=== PATIENT | female | born 1950 | race Caucasian/White ===

== ENCOUNTER 2018-02-05 12:37 | Emergency (ER) | payer BC ==
[~2018-02-05] VITALS: Ht 162.6 cm; Wt 84.8 kg
[~2018-02-05 12:37] MED LIST: ALLEGRA180 MG PO; ALLEGRA60 MG PO; CELEXA20 MG PO; CRESTOR10 MG; Coumadin PO; EFFEXOR75 MG PO; JANTOVEN5 MG PO; JANTOVEN7.5 MG PO; LIPITOR80 MG PO; LOFIBRA134 MG PO; PRAVASTATIN SOD40 MG PO; SUDAFED 12-HOU120 MG PO; TRAMADOL HCL50 MG PO; ZOFRAN4 MG PO
[2018-02-05 14:08] LABS: HEMATOCRIT 40.2 % (36.0-46.0); HEMOGLOBIN 12.9 G/DL (11.9-15.5); MCH 24.3 PG (29.0-34.0); MCHC 32.1 G/DL (30.0-36.0); MCV 75.8 FL (83-99); RBC DIS.WIDTH-CV 16.2 % (11.8-14.6); WHITE BLOOD COUNT 16.3 K/uL (4.1-10.2)
[2018-02-05 14:19] LABS: ALBUMIN 4.4 g/dL (3.2-4.8); CHLORIDE 104 mEq/L (99-109); POTASSIUM 4.1 mEq/L (3.7-5.4); SODIUM 141 mEq/L (136-147)
[2018-02-05 14:20] LABS: INTER. NORMALIZED RATIO 3.1
[2018-02-05 14:21] LABS: GLUCOSE 127 mg/dL (70-99); TOTAL PROTEIN 7.7 g/dL (6.4-8.3)
[2018-02-05 14:23] LABS: TOTAL BILIRUBIN 0.6 mg/dL (0.0-1.0)
[2018-02-05 14:25] LABS: ALKALINE PHOSPHATASE 111 IU/L (3-129); CREATININE 0.7 mg/dL (0.6-1.3); GFR ESTIMATE (CALCULATED) > 59 mL/min/
[2018-02-05 14:26] LABS: UREA NITROGEN (BUN) 19 mg/dL (9-23)
[2018-02-05 14:27] LABS: AST (GOT) 24 IU/L (2-34); DIRECT BILIRUBIN 0.2 mg/dL (0.0-0.3)
[2018-02-05 14:28] LABS: ALT (GPT) 21 IU/L (3-49)
[2018-02-05 14:36] LABS: TROP-I INTERPRETATION NEGATIVE; TROPONIN-I < 0.01 ng/mL (0.0-0.30)
[2018-02-05 14:58] LABS: HEMATOLOGY COMMENT 1 SN; PLAT.SUFFICIENCY ADEQUATE; PLATELET COUNT 289 K/uL (156-360)
[2018-02-05 16:02] LABS: APPEARANCE SL.HAZY ((CLEAR)); BILIRUBIN NEGATIVE; BLOOD MODERATE; COLOR YELLOW ((YELLOW)); GLUCOSE (STRIP) NEGATIVE; KETONES NEGATIVE; LEUKOCYTES TRACE; NITRITE POSITIVE; PROTEIN (STRIP) 30; SPECIFIC GRAVITY 1.018 (1.000-1.030); UROBILINOGEN 0.2 MG/DL (0.2-1.0)
[2018-02-05 16:09] LABS: BACTERIA 1+ /HPF; EPITHELIAL CELLS RARE /HPF; HYALINE CASTS 0-5 /LPF; MUCUS 2+ /LPF; UCUL ADDED? YES; WHITE BLOOD CELLS 20-30 /HPF (0-5)
[2018-02-05] MEDS ORDERED: LEVAQUIN750 MG PO (17:46)
[2018-02-05 19:14] VITALS: BP 131/75
== END 2018-02-05 19:23 | disposition home or self-care (01) ==
LOC: EME 12:37
PROVIDERS: Emergency Medicine; Emergency Medicine Emergency Medical Services
DX: N39.0 Urinary tract infection, site not specified (principal); R11.2 Nausea with vomiting, unspecified; R42 Dizziness and giddiness; K21.9 Gastro-esophageal reflux disease without esophagitis; E78.5 Hyperlipidemia, unspecified; F32.9 Major depressive disorder, single episode, unspecified; Z86.718 Personal history of other venous thrombosis and embolism; Z90.710 Acquired absence of both cervix and uterus; Z88.2 Allergy status to sulfonamides; Z88.1 Allergy status to other antibiotic agents; Z88.6 Allergy status to analgesic agent; Z88.8 Allergy status to other drugs, medicaments and biological substances
CPT/HCPCS: 71046; 74177; 80048; 80076; 81003; 84484; 85027; 85610; 87077; 87086; 87186; 93005; 99281; 99284; J0696; J7040

== ENCOUNTER 2018-02-08 09:00 | Emergency (ER) | payer BC ==
[~2018-02-08] VITALS: Ht 162.6 cm; Wt 82.7 kg
[~2018-02-08 09:00] MED LIST changes: +LEVAQUIN750 MG PO
[2018-02-08 09:46] LABS: HEMATOCRIT 36.2 % (36.0-46.0); HEMOGLOBIN 11.9 G/DL (11.9-15.5); MCH 24.7 PG (29.0-34.0); MCHC 32.9 G/DL (30.0-36.0); MCV 75.3 FL (83-99); RBC DIS.WIDTH-CV 16.5 % (11.8-14.6); RBC DIS.WIDTH-SD 44.9 % (39-53); RED BLOOD COUNT 4.81 M/uL (3.80-5.20); WHITE BLOOD COUNT 17.7 K/uL (4.1-10.2)
[2018-02-08 09:57] LABS: ALBUMIN 3.7 g/dL (3.2-4.8); CHLORIDE 100 mEq/L (99-109); POTASSIUM 3.9 mEq/L (3.7-5.4); SODIUM 140 mEq/L (136-147)
[2018-02-08 09:59] LABS: GLUCOSE 130 mg/dL (70-99)
[2018-02-08 10:00] LABS: TOTAL PROTEIN 6.9 g/dL (6.4-8.3)
[2018-02-08 10:02] LABS: TOTAL BILIRUBIN 1.1 mg/dL (0.0-1.0)
[2018-02-08 10:03] LABS: ALKALINE PHOSPHATASE 99 IU/L (3-129); CREATININE 0.6 mg/dL (0.6-1.3); GFR ESTIMATE (CALCULATED) > 59 mL/min/
[2018-02-08 10:04] LABS: UREA NITROGEN (BUN) 21 mg/dL (9-23)
[2018-02-08 10:05] LABS: AST (GOT) 29 IU/L (2-34)
[2018-02-08 10:06] LABS: ALT (GPT) 20 IU/L (3-49)
[2018-02-08 10:19] LABS: LIPASE 10 U/L (1.0-51.0)
[2018-02-08 10:20] LABS: PLAT.SUFFICIENCY ADEQUATE; PLATELET COUNT 232 K/uL (156-360)
[2018-02-08 10:25] LABS: INTER. NORMALIZED RATIO 2.4
[2018-02-08 10:32] LABS: APPEARANCE SL.HAZY ((CLEAR)); BILIRUBIN NEGATIVE; BLOOD SMALL; COLOR AMBER ((YELLOW)); GLUCOSE (STRIP) NEGATIVE; KETONES NEGATIVE; LEUKOCYTES TRACE; NITRITE NEGATIVE; PROTEIN (STRIP) 100; SPECIFIC GRAVITY 1.025 (1.000-1.030)
[2018-02-08 10:37] LABS: BACTERIA RARE /HPF; EPITHELIAL CELLS RARE /HPF; MUCUS TRACE /LPF; UCUL ADDED? YES
[2018-02-08] MEDS ORDERED: KEFLEX500 MG PO (11:49)
[2018-02-08] MEDS ORDERED: TYLENOL WITH C1 EACH PO (11:49)
[2018-02-08 12:09] VITALS: BP 95/45
== END 2018-02-08 12:18 | disposition home or self-care (01) ==
LOC: EME 09:00
PROVIDERS: Emergency Medicine
DX: N39.0 Urinary tract infection, site not specified (principal); R11.2 Nausea with vomiting, unspecified; R55 Syncope and collapse; Z87.442 Personal history of urinary calculi; Z90.710 Acquired absence of both cervix and uterus; Z88.2 Allergy status to sulfonamides; E78.5 Hyperlipidemia, unspecified; Z86.718 Personal history of other venous thrombosis and embolism; Z79.01 Long term (current) use of anticoagulants
CPT/HCPCS: 80053; 81003; 83690; 85027; 85610; 87086; 99281; 99284; J0696; J2405; J7030

== ENCOUNTER → 2018-03-20 | Outpatient (CLI) | payer BC ==
[~2018-03-20] MED LIST changes: +KEFLEX500 MG PO; +TYLENOL WITH C1 EACH PO
== END | disposition home or self-care (01) ==
LOC: NUC 08:08
DX: K31.84 Gastroparesis (principal); R14.0 Abdominal distension (gaseous)
CPT/HCPCS: 78264; A9541

== ENCOUNTER 2018-05-07 16:37 | Inpatient (IN) | payer BC ==
[~2018-05-07] VITALS: Ht 162.6 cm; Wt 83.4 kg
[~2018-05-07 16:37] MED LIST changes: +ATORVASTATIN CA40 MG PO; +EFFEXOR XR75 MG PO; -EFFEXOR75 MG PO; -PRAVASTATIN SOD40 MG PO; +SINUS 12 HOUR120 MG PO; -SUDAFED 12-HOU120 MG PO
[2018-05-07 17:41] LABS: HEMATOCRIT 36.1 % (36.0-46.0); HEMOGLOBIN 11.5 G/DL (11.9-15.5); MCH 23.9 PG (29.0-34.0); MCHC 31.9 G/DL (30.0-36.0); MCV 74.9 FL (83-99); PLATELET COUNT 105 K/uL (156-360); RBC DIS.WIDTH-CV 16.7 % (11.8-14.6); RBC DIS.WIDTH-SD 44.9 % (39-53); RED BLOOD COUNT 4.82 M/uL (3.80-5.20); WHITE BLOOD COUNT 7.5 K/uL (4.1-10.2)
[2018-05-07 17:44] LABS: ALBUMIN 3.5 g/dL (3.2-4.8); CHLORIDE 103 mEq/L (99-109); POTASSIUM 3.2 mEq/L (3.7-5.4); SODIUM 139 mEq/L (136-147)
[2018-05-07 17:45] LABS: MAGNESIUM 1.7 mg/dL (1.3-2.7)
[2018-05-07 17:47] LABS: GLUCOSE 99 mg/dL (70-99); TOTAL PROTEIN 6.4 g/dL (6.4-8.3)
[2018-05-07 17:49] LABS: TOTAL BILIRUBIN 1.3 mg/dL (0.0-1.0)
[2018-05-07 17:50] LABS: ALKALINE PHOSPHATASE 328 IU/L (3-129); PTT 42.7 SEC (25-37)
[2018-05-07 17:51] LABS: CREATININE 0.8 mg/dL (0.6-1.3); GFR ESTIMATE (CALCULATED) > 59 mL/min/
[2018-05-07 17:52] LABS: AST (GOT) 299 IU/L (2-34); UREA NITROGEN (BUN) 20 mg/dL (9-23)
[2018-05-07 17:53] LABS: ALT (GPT) 178 IU/L (3-49); TROP-I INTERPRETATION NEGATIVE; TROPONIN-I < 0.01 ng/mL (0.0-0.30)
[2018-05-07 18:01] LABS: APPEARANCE CLOUDY ((CLEAR)); BILIRUBIN NEGATIVE; BLOOD LARGE; COLOR AMBER ((YELLOW)); GLUCOSE (STRIP) NEGATIVE; KETONES NEGATIVE; LEUKOCYTES SMALL; NITRITE NEGATIVE; PROTEIN (STRIP) 100; SPECIFIC GRAVITY 1.019 (1.000-1.030)
[2018-05-07 18:04] LABS: INTER. NORMALIZED RATIO 4.6
[2018-05-07 18:06] LABS: BACTERIA RARE /HPF; EPITHELIAL CELLS 1+ /HPF; MUCUS TRACE /LPF; RED BLOOD CELLS TNTC /HPF (0-5); UCUL ADDED? YES
[2018-05-07 18:25] LABS: ABS NEUTROPHIL COUNT 6.9; ANISOCYTOSIS 1+; ATYPICAL LYMPHOCYTE 0.9 %; BAND NEUTROPHILS 40.9 % (0-8.0); BASOPH.STIPPLING 1+; BASOPHILS 1.7 %; BURR CELLS 1+; EOSINOPHIL ABS CT 0; HYPOCHROMASIA 1+; LYMPHOCYTES 3.5 % (15.0-45.0); MICROCYTOSIS 1+; MONOCYTES 1.7 % (0-9.0); OVALOCYTES 2+; PLAT.SUFFICIENCY DECREASED; POIKILOCYTOSIS 2+; SEG.NEUTROPHILS 51.3 % (46.0-76.0)
[2018-05-07] MEDS ORDERED: OMEPRAZOLE40 M1 PO (20:17)
[2018-05-07] MEDS ORDERED: AMITIZA24 MICROGR PO (20:17)
[2018-05-07] MEDS ORDERED: PENNSAID112 GM TP (20:18)
[2018-05-07] MEDS ORDERED: MONTELUKAST SOD10 MG PO (20:19)
[2018-05-07 23:43] VITALS: BP 91/53
[2018-05-08] VITALS (7 sets, daily range): BP systolic 96–195; BP diastolic 53–91
[2018-05-08 05:29] LABS: INTER. NORMALIZED RATIO 4.4
[2018-05-08 05:32] LABS: PTT 44.5 SEC (25-37)
[2018-05-08 05:47] LABS: HEMATOCRIT 30.6 % (36.0-46.0); HEMOGLOBIN 9.8 G/DL (11.9-15.5); MCH 23.9 PG (29.0-34.0); MCV 74.6 FL (83-99); PLATELET COUNT 94 K/uL (156-360); RBC DIS.WIDTH-CV 16.8 % (11.8-14.6); RBC DIS.WIDTH-SD 45.4 % (39-53); WHITE BLOOD COUNT 15.5 K/uL (4.1-10.2)
[2018-05-08 05:51] LABS: ALKALINE PHOSPHATASE 130 IU/L (3-129); ALT (GPT) 105 IU/L (3-49); AST (GOT) 116 IU/L (2-34); CHLORIDE 108 MEQ/L (99-109); CREATININE 0.6 MG/DL (0.6-1.3); GFR ESTIMATE (CALCULATED) > 59 mL/min/; GLUCOSE 90 mg/dL (70-99); POTASSIUM 3.6 MEQ/L (3.7-5.4); SODIUM 143 MEQ/L (136-147); TOTAL BILIRUBIN 0.7 MG/DL (0.0-1.0); UREA NITROGEN (BUN) 17 mg/dL (9-23)
[2018-05-08 06:04] LABS: ABS NEUTROPHIL COUNT 14.1; ANISOCYTOSIS 1+; BAND NEUTROPHILS 21.9 % (0-8.0); EOSINOPHIL ABS CT 0; LYMPHOCYTES 6.2 % (15.0-45.0); MICROCYTOSIS 1+; MONOCYTES 2.6 % (0-9.0); OVALOCYTES 1+; PLAT.SUFFICIENCY DECREASED; POIKILOCYTOSIS 2+; SEG.NEUTROPHILS 69.3 % (46.0-76.0)
[2018-05-08 12:41] LABS: BASOPHIL (%) 0.7 % (0-1); BASOPHIL COUNT 0.1 K/uL (0-0.1); EOSINOPHIL (%) 0.7 % (0-5); EOSINOPHIL COUNT 0.1 K/uL (0-0.3); IMMATURE GRANULOCYTE (%) 0.9 % (0.0-0.7); INTER. NORMALIZED RATIO 3.6; LYMPHOCYTE (%) 10.6 % (15-42); LYMPHOCYTE COUNT 1.6 K/uL (1.0-2.8); MCH 23.4 PG (29.0-34.0); MCHC 31.3 G/DL (30.0-36.0); MCV 74.9 FL (83-99); MONOCYTE COUNT 1.3 K/uL (0-0.8); NEUTROPHIL (%) 78.1 % (45-76); NEUTROPHIL COUNT 11.6 K/uL (1.8-6.4); PLATELET COUNT 121 K/uL (156-360); RBC DIS.WIDTH-SD 46.1 % (39-53); RED BLOOD COUNT 4.27 M/uL (3.80-5.20); WHITE BLOOD COUNT 14.8 K/uL (4.1-10.2)
[2018-05-09 03:25] VITALS: BP 112/53
[2018-05-09 07:05] VITALS: BP 134/73
[2018-05-09 07:12] LABS: INTER. NORMALIZED RATIO 1.5
[2018-05-09 07:24] LABS: HEMATOCRIT 31.8 % (36.0-46.0); HEMOGLOBIN 9.9 G/DL (11.9-15.5); MCH 23.4 PG (29.0-34.0); MCHC 31.1 G/DL (30.0-36.0); MCV 75.2 FL (83-99); PLATELET COUNT 118 K/uL (156-360); RBC DIS.WIDTH-CV 17.1 % (11.8-14.6); RBC DIS.WIDTH-SD 46.3 % (39-53); RED BLOOD COUNT 4.23 M/uL (3.80-5.20); WHITE BLOOD COUNT 11.6 K/uL (4.1-10.2)
[2018-05-09 07:32] LABS: ALBUMIN 2.9 G/DL (3.2-4.8); ALKALINE PHOSPHATASE 107 IU/L (3-129); ALT (GPT) 68 IU/L (3-49); CHLORIDE 110 MEQ/L (99-109); CREATININE 0.5 MG/DL (0.6-1.3); GFR ESTIMATE (CALCULATED) > 59 mL/min/; GLUCOSE 73 mg/dL (70-99); IRON 18 MCG/DL (35-150); POTASSIUM 3.4 MEQ/L (3.7-5.4); SODIUM 146 MEQ/L (136-147); UREA NITROGEN (BUN) 15 mg/dL (9-23)
[2018-05-09 07:34] LABS: AST (GOT) 49 IU/L (2-34); TOTAL BILIRUBIN 0.5 MG/DL (0.0-1.0)
[2018-05-09 14:13] VITALS: BP 127/69
[2018-05-09 19:34] VITALS: BP 124/69
[2018-05-10 03:17] VITALS: BP 117/58
[2018-05-10 06:51] LABS: HEMATOCRIT 27.8 % (36.0-46.0); HEMOGLOBIN 8.8 G/DL (11.9-15.5); MCH 23.6 PG (29.0-34.0); MCHC 31.7 G/DL (30.0-36.0); MCV 74.5 FL (83-99); PLATELET COUNT 122 K/uL (156-360); RBC DIS.WIDTH-CV 16.9 % (11.8-14.6); RBC DIS.WIDTH-SD 45.9 % (39-53); RED BLOOD COUNT 3.73 M/uL (3.80-5.20); WHITE BLOOD COUNT 10.8 K/uL (4.1-10.2)
[2018-05-10 07:01] LABS: ALBUMIN 2.6 G/DL (3.2-4.8); ALKALINE PHOSPHATASE 86 IU/L (3-129); ALT (GPT) 52 IU/L (3-49); AST (GOT) 33 IU/L (2-34); C-REACTIVE PROTEIN 106.1 MG/L (0-10); CHLORIDE 107 MEQ/L (99-109); CREATININE 0.4 MG/DL (0.6-1.3); DIRECT BILIRUBIN 0.1 mg/dL (0.0-0.3); GFR ESTIMATE (CALCULATED) > 59 mL/min/; POTASSIUM 3.6 MEQ/L (3.7-5.4); SODIUM 144 MEQ/L (136-147); TOTAL BILIRUBIN 0.4 MG/DL (0.0-1.0); TOTAL PROTEIN 4.6 G/DL (6.4-8.3); UREA NITROGEN (BUN) 10 mg/dL (9-23)
[2018-05-10 07:03] LABS: GLUCOSE 134 mg/dL (70-99)
[2018-05-10 08:45] VITALS: BP 114/59
[2018-05-10 12:52] VITALS: BP 102/57
[2018-05-10 13:49] LABS: INTER. NORMALIZED RATIO 1.6
[2018-05-10 15:15] VITALS: BP 106/56
[2018-05-10 21:00] VITALS: BP 124/61
[2018-05-11 00:50] VITALS: BP 99/52
[2018-05-11 03:54] VITALS: BP 118/65
[2018-05-11 06:57] LABS: INTER. NORMALIZED RATIO 1.6
[2018-05-11 08:41] LABS: ALBUMIN 2.7 G/DL (3.2-4.8); ALKALINE PHOSPHATASE 83 IU/L (3-129); ALT (GPT) 39 IU/L (3-49); AST (GOT) 22 IU/L (2-34); CHLORIDE 107 MEQ/L (99-109); CREATININE 0.4 MG/DL (0.6-1.3); GFR ESTIMATE (CALCULATED) > 59 mL/min/; POTASSIUM 3.4 MEQ/L (3.7-5.4); SODIUM 145 MEQ/L (136-147); TOTAL PROTEIN 4.8 G/DL (6.4-8.3); UREA NITROGEN (BUN) 6 mg/dL (9-23)
[2018-05-11 08:45] VITALS: BP 114/61
[2018-05-11 08:47] LABS: GLUCOSE 90 mg/dL (70-99); TOTAL BILIRUBIN 0.5 MG/DL (0.0-1.0)
[2018-05-11 15:57] VITALS: BP 123/60
[2018-05-11 19:34] VITALS: BP 112/53
[2018-05-12 00:47] VITALS: BP 132/67
[2018-05-12 06:05] LABS: INTER. NORMALIZED RATIO 1.7
[2018-05-12 06:18] LABS: CHLORIDE 104 MEQ/L (99-109); CREATININE 0.5 MG/DL (0.6-1.3); GFR ESTIMATE (CALCULATED) > 59 mL/min/; GLUCOSE 93 mg/dL (70-99); SODIUM 144 MEQ/L (136-147); UREA NITROGEN (BUN) 4 mg/dL (9-23)
[2018-05-12 06:23] LABS: HEMATOCRIT 29.9 % (36.0-46.0); HEMOGLOBIN 9.4 G/DL (11.9-15.5); MCH 23.2 PG (29.0-34.0); MCHC 31.4 G/DL (30.0-36.0); MCV 73.8 FL (83-99); RBC DIS.WIDTH-CV 16.6 % (11.8-14.6); RBC DIS.WIDTH-SD 44.1 % (39-53); RED BLOOD COUNT 4.05 M/uL (3.80-5.20); WHITE BLOOD COUNT 8.1 K/uL (4.1-10.2)
[2018-05-12 06:27] LABS: PLATELET COUNT 201 K/uL (156-360)
[2018-05-12 08:00] VITALS: BP 116/73
[2018-05-12 15:37] VITALS: BP 123/68
[2018-05-12 23:35] VITALS: BP 142/78
[2018-05-13 06:35] LABS: INTER. NORMALIZED RATIO 1.8
[2018-05-13 06:36] LABS: ALBUMIN 3.6 G/DL (3.2-4.8); ALKALINE PHOSPHATASE 85 IU/L (3-129); ALT (GPT) 31 IU/L (3-49); AST (GOT) 18 IU/L (2-34); CHLORIDE 103 MEQ/L (99-109); CREATININE 0.5 MG/DL (0.6-1.3); GFR ESTIMATE (CALCULATED) > 59 mL/min/; GLUCOSE 110 mg/dL (70-99); POTASSIUM 3.9 MEQ/L (3.7-5.4); SODIUM 142 MEQ/L (136-147); TOTAL BILIRUBIN 0.6 MG/DL (0.0-1.0); UREA NITROGEN (BUN) 10 mg/dL (9-23)
[2018-05-13 07:34] LABS: BASOPHIL (%) 0.9 % (0-1); BASOPHIL COUNT 0.1 K/uL (0-0.1); EOSINOPHIL (%) 2.8 % (0-5); EOSINOPHIL COUNT 0.3 K/uL (0-0.3); HEMATOCRIT 33.3 % (36.0-46.0); HEMOGLOBIN 10.7 G/DL (11.9-15.5); LYMPHOCYTE (%) 22.7 % (15-42); LYMPHOCYTE COUNT 2.7 K/uL (1.0-2.8); MCH 23.5 PG (29.0-34.0); MCHC 32.1 G/DL (30.0-36.0); MONOCYTE (%) 6.8 % (3-12); MONOCYTE COUNT 0.8 K/uL (0-0.8); NEUTROPHIL (%) 65.8 % (45-76); NEUTROPHIL COUNT 7.7 K/uL (1.8-6.4); PLATELET COUNT 288 K/uL (156-360); RBC DIS.WIDTH-CV 16.7 % (11.8-14.6); RBC DIS.WIDTH-SD 43.7 % (39-53); RED BLOOD COUNT 4.56 M/uL (3.80-5.20); WHITE BLOOD COUNT 11.7 K/uL (4.1-10.2)
[2018-05-13 11:27] VITALS: BP 113/56
[2018-05-13 16:49] VITALS: BP 134/60
[2018-05-13 20:01] VITALS: BP 109/55
[2018-05-13 23:55] VITALS: BP 119/57
[2018-05-14 07:44] LABS: CHLORIDE 105 MEQ/L (99-109); CREATININE 0.5 MG/DL (0.6-1.3); GFR ESTIMATE (CALCULATED) > 59 mL/min/; GLUCOSE 105 mg/dL (70-99); POTASSIUM 4.2 MEQ/L (3.7-5.4); SODIUM 140 MEQ/L (136-147); UREA NITROGEN (BUN) 13 mg/dL (9-23)
[2018-05-14 07:48] VITALS: BP 113/62
[2018-05-14 08:02] LABS: BASOPHIL COUNT 0.1 K/uL (0-0.1); EOSINOPHIL (%) 3.7 % (0-5); EOSINOPHIL COUNT 0.4 K/uL (0-0.3); HEMATOCRIT 29.6 % (36.0-46.0); HEMOGLOBIN 9.5 G/DL (11.9-15.5); LYMPHOCYTE (%) 25.2 % (15-42); LYMPHOCYTE COUNT 2.7 K/uL (1.0-2.8); MCH 23.8 PG (29.0-34.0); MCHC 32.1 G/DL (30.0-36.0); MCV 74.2 FL (83-99); MONOCYTE (%) 8.7 % (3-12); MONOCYTE COUNT 0.9 K/uL (0-0.8); NEUTROPHIL (%) 60.4 % (45-76); NEUTROPHIL COUNT 6.5 K/uL (1.8-6.4); PLATELET COUNT 288 K/uL (156-360); RBC DIS.WIDTH-CV 17.1 % (11.8-14.6); RBC DIS.WIDTH-SD 45.1 % (39-53); RED BLOOD COUNT 3.99 M/uL (3.80-5.20); WHITE BLOOD COUNT 10.8 K/uL (4.1-10.2)
[2018-05-14 15:33] VITALS: BP 143/60
[2018-05-15 08:21] LABS: INTER. NORMALIZED RATIO 2.4
[2018-05-15 08:25] VITALS: BP 113/67
[2018-05-15 08:27] LABS: HEMATOCRIT 30.6 % (36.0-46.0); HEMOGLOBIN 9.8 G/DL (11.9-15.5); MCH 23.8 PG (29.0-34.0); MCV 74.3 FL (83-99); PLATELET COUNT 326 K/uL (156-360); RBC DIS.WIDTH-CV 17.1 % (11.8-14.6); RBC DIS.WIDTH-SD 45.5 % (39-53); RED BLOOD COUNT 4.12 M/uL (3.80-5.20); WHITE BLOOD COUNT 9.6 K/uL (4.1-10.2)
[2018-05-15 08:41] LABS: CHLORIDE 105 MEQ/L (99-109); CREATININE 0.5 MG/DL (0.6-1.3); GFR ESTIMATE (CALCULATED) > 59 mL/min/; GLUCOSE 97 mg/dL (70-99); POTASSIUM 3.9 MEQ/L (3.7-5.4); SODIUM 142 MEQ/L (136-147); UREA NITROGEN (BUN) 13 mg/dL (9-23)
[2018-05-15] MEDS ORDERED: KEFLEX500 MG PO (15:37)
[2018-05-15 15:41] VITALS: BP 114/57
== END 2018-05-15 18:06 | disposition home or self-care (01) | DRG 854 ==
LOC: EME 16:37 → EDOF 22:54 → 2EAST 22:54 → ENRESERV 22:57 → 2EAST 23:40
PROVIDERS: Emergency Medicine; Family Medicine; Hospitalist; Internal Medicine; Internal Medicine Gastroenterology; Student in an Organized Health Care Education/Training Program
PROC: 0FT44ZZ Resection of Gallbladder, Percutaneous Endoscopic Approach (ICD-10-PCS; principal; 2018-05-09)
DX: A41.51 Sepsis due to Escherichia coli [E. coli] (principal); K80.63 Calculus of gallbladder and bile duct with acute cholecystitis with obstruction; N39.0 Urinary tract infection, site not specified; F33.9 Major depressive disorder, recurrent, unspecified; L03.116 Cellulitis of left lower limb; B02.21 Postherpetic geniculate ganglionitis; F05 Delirium due to known physiological condition; D68.318 Other hemorrhagic disorder due to intrinsic circulating anticoagulants, antibodies, or inhibitors; D68.52 Prothrombin gene mutation; D50.9 Iron deficiency anemia, unspecified; E87.6 Hypokalemia; T45.515A Adverse effect of anticoagulants, initial encounter; D69.59 Other secondary thrombocytopenia; E78.5 Hyperlipidemia, unspecified; E83.51 Hypocalcemia; I10 Essential (primary) hypertension; I25.10 Atherosclerotic heart disease of native coronary artery without angina pectoris; J45.909 Unspecified asthma, uncomplicated; K21.9 Gastro-esophageal reflux disease without esophagitis; E11.649 Type 2 diabetes mellitus with hypoglycemia without coma; F41.9 Anxiety disorder, unspecified; I95.9 Hypotension, unspecified; E11.43 Type 2 diabetes mellitus with diabetic autonomic (poly)neuropathy; K31.84 Gastroparesis; G51.0 Bell's palsy; E66.9 Obesity, unspecified; K44.9 Diaphragmatic hernia without obstruction or gangrene; I80.03 Phlebitis and thrombophlebitis of superficial vessels of lower extremities, bilateral; I83.893 Varicose veins of bilateral lower extremities with other complications; K76.89 Other specified diseases of liver; B96.20 Unspecified Escherichia coli [E. coli] as the cause of diseases classified elsewhere; Z79.01 Long term (current) use of anticoagulants; Z80.51 Family history of malignant neoplasm of kidney; Z82.49 Family history of ischemic heart disease and other diseases of the circulatory system; Z83.0 Family history of human immunodeficiency virus [HIV] disease; Z86.718 Personal history of other venous thrombosis and embolism; Z88.1 Allergy status to other antibiotic agents; Z88.6 Allergy status to analgesic agent; Z88.2 Allergy status to sulfonamides; Z68.31 Body mass index [BMI] 31.0-31.9, adult; Z86.010 Personal history of colon polyps; B94.8 Sequelae of other specified infectious and parasitic diseases
CPT/HCPCS: 71045; 74181; 76705; 80048; 80053; 80076; 81003; 82948; 83540; 83605; 83735; 83880; 84484; 85025; 85025 91; 85027; 85610; 85730; 86140; 86850; 86900; 86901; 87040; 87070; 87075; 87076; 87077; 87086; 87185; 87186; 87205; 87801; 88304; 93005; 93970; 94799; 99281; 99284; J0131; J0295; J0330; J0696; J1100; J1170; J1650; J2250; J2270; J2405; J2710; J3010; J3430; J3480; J7030; J7040; J7050; J7643; S0028